=== PATIENT | male | born 1965 | race Caucasian/White ===

== ENCOUNTER 2021-07-15 12:21 | Emergency (ER) | payer OTHER, BC ==
[~2021-07-15] VITALS: Ht 188 cm; Wt 150.0 kg
[2021-07-15] MEDS ORDERED: OMNI-PAC300 MG PO (15:19)
[2021-07-15 16:08] VITALS: BP 131/79
== END 2021-07-15 16:08 | disposition home or self-care (01) | DRG 155 ==
LOC: ED 12:21
PROC: 0HQ2XZZ Repair Right Ear Skin, External Approach (ICD-10-PCS; principal; 2021-07-15)
DX: S01.311A Laceration without foreign body of right ear, initial encounter (principal); I10 Essential (primary) hypertension; E11.9 Type 2 diabetes mellitus without complications; E66.9 Obesity, unspecified; W17.89XA Other fall from one level to another, initial encounter; Y99.0 Civilian activity done for income or pay; Z68.41 Body mass index [BMI] 40.0-44.9, adult